=== PATIENT | female | born 2000 | race Two or more races ===

== ENCOUNTER → 2024-10-26 | Outpatient (CLI) | payer BC, SELFPAY ==
--- NOTE | 2024-10-26 14:30 | XR_ITS ---
Examination: Abdomen sonogram, complete Date and time of exam: October 26, 2024 1501 hours INDICATIONS: Upper abdominal pain beginning 2 years ago. Technique: Multiple real-time grayscale transabdominal sonographic images of the abdomen have been obtained. Findings: Multiple gallstones Normal gallbladder wall Normal common bile duct 0.3 cm Pancreatic head 2.5 cm Aorta not enlarged Liver 14.4 cm fatty infiltration no focal liver lesions Normal hepatopedal portal venous flow Patent IVC Right kidney 10.5 cm cortex 2.6 cm Left kidney 11.2 cm cortex 2.5 cm Spleen 10.3 cm IMPRESSION: Cholelithiasis, negative for cholecystitis Fatty liver
== END | disposition home or self-care (01) ==
PROVIDERS: PCP Physician Assistant; Referring Provider Physician Assistant; Visit Provider Physician Assistant
DX: K80.20 Calculus of gallbladder without cholecystitis without obstruction (principal); K76.0 Fatty (change of) liver, not elsewhere classified
CPT/HCPCS: 76700

== ENCOUNTER 2024-11-23 20:48 | Emergency (ER) | payer BC, SELFPAY ==
[2024-11-23 20:50] VITALS: BMI 31.8
--- NOTE | 2024-11-23 22:06 | PC.NURSE ---
PT DID NOT ANSWER WHEN NAME WAS CALLED IN THE LOBBY AND WAS NOT FOUND OUTSIDE
--- NOTE | 2024-11-23 22:20 | PC.NURSE ---
PATIENT STATED THAT HER PAIN HAD IMPROVED AND WAS GOING TO LEAVE. PATIENT STATED SHE WILL RETURN IN THE MORNING FOR HER SCHEDULED SURGERY. PATIENT ALSO STATED SHE DID NOT WANT TO BE SEEN OR STAY BECAUSE SHE DID NOT WANT TO RECEIVE AN ADDITIONAL BILL WHEN SHE ALREADY HAS SURGERY SCHEDULED FOR TOMORROW HERE. PATIENT ENCOURAGED TO STAY. PATIENT ALSO ENCOURAGED TO RETURN.
== END 2024-11-23 22:20 | disposition left against medical advice (07) ==
LOC: SERX 22:45
PROVIDERS: Emergency Provider Emergency Medicine
DX: Z53.21 Procedure and treatment not carried out due to patient leaving prior to being seen by health care provider (principal)

== ENCOUNTER 2024-11-24 05:40 | Day surgery (SDC) | payer BC, SELFPAY ==
[2024-11-23 10:20] VITALS: BMI 31.0
[2024-11-23 12:27] LABS: Basophils % (Auto) 0 % (0-2.5); Eosinophils # (Auto) 0.1 Thou/mm3 (0.0-0.5); Eosinophils % (Auto) 1 % (0-10); Hematocrit 37.8 % (36.0-46.0); Hemoglobin 12.9 g/dL (12.0-16.0); Immature Granulocytes % (Auto) 0 % (0-0); Immature Granulocytes Auto 0.02 Thou/mm3 (0.00-0.00); Lymphocytes # (Auto) 2.3 Thou/mm3 (1.0-4.8); Lymphocytes % (Auto) 30 % (10-50); Mean Corpuscular HGB Conc 34.1 g/dl (31.0-37.0); Mean Corpuscular Hemoglobin 29.5 pg (25.0-35.0); Mean Corpuscular Volume 87 fL (80-100); Monocytes # (Auto) 0.7 Thou/mm3 (0.0-0.8); Monocytes % (Auto) 9 % (0-12); Neutrophils # (Auto) 4.6 Thou/mm3 (1.8-7.7); Neutrophils % (Auto) 60 % (37-80); Nucleated Red Blood Cell % 0 /100 WBC (0); Platelet Count 250 Thou/mm3 (140-440); Red Blood Count 4.37 Miln/mm3 (4.00-5.20); White Blood Count 7.8 Thou/mm3 (3.6-11.0)
[2024-11-23 12:39] LABS: Alanine Aminotransferase 25 U/L (10-49); Albumin, Serum 4.4 gm/dL (3.5-5.0); Albumin/Globulin Ratio 1.5 (1.2-2.2); Alkaline Phosphatase 66 U/L (46-116); Anion Gap 7 (7-16); Aspartate Amino Transferase 20 U/L (0-34); BUN/Creatinine Ratio 10 Ratio (12-20); Beta HCG,Quantitative 2 mIU/mL (<5.0); Bilirubin,Total 0.3 mg/dL (0.3-1.2); Blood Urea Nitrogen 7 mg/dL (9-23); Calcium 9.2 mg/dL (8.3-10.6); Calcium (Corrected) 9.2 mg/dL (8.5-10.1); Carbon Dioxide 26.4 mMol/L (20.0-31.0); Chloride 108 mMol/L (98-107); Creatinine (Component) 0.7 mg/dL (0.6-1.3); Estimated Creatinine Clearance 127.3 mL/min (>60); Glucose 81 mg/dL (74-106); Osmolality,Calculated 278 (275-295); Potassium 4.2 mMol/L (3.4-5.1); Sodium 141 mMol/L (136-145); Total Protein 7.4 gm/dL (5.7-8.2); eGFR > 60 See Note
[2024-11-24] VITALS (10 sets, daily range): BP systolic 110–134; BP diastolic 75–90; PULSE 68–95; RESP 12–20; TEMP 36.2–36.6; O2SAT 98–100; BMI 32.2
[2024-11-24] MEDS: RINGERS LACTATED 1000 ML 1,000 ML 20 ML IV (06:42)
--- NOTE | 2024-11-24 08:31 | ESOP_ITS ---
Date of Procedure 11/24/24 Pre Op Diagnosis Symptomatic cholelithiasis Post Op Diagnosis Cholelithiasis with cholecystitis Procedure Laparoscopic cholecystectomy Findings Moderately distended gallbladder with multiple gallstones and chronic cholecystitis Procedure Description Patient was brought into the operating room in supine position. After administration of general endotracheal anesthesia abdomen was prepped and draped in standard surgical manner. A Veress needle was inserted through the umbilicus and pneumoperitoneum was obtained up to 15 mmHg. The Veress needle was then removed, a 5 mm infraumbilical incision was made and the 5mm trocar was inserted. Laparoscopic camera was placed. Under direct visualization a laparoscopic camera a 10 mm trocar was placed in subxiphoid and two 5 mm trocars placed in right upper quadrant. The gallbladder was identified and was noted to be moderately distended with multiple gallstones and chronic cholecystitis. It was retracted cephalad and laterally. Dissection started near the infundibulum of gallbladder where cystic duct and gallbladder junction clearly identified. The cystic duct was circumferentially dissected off the peritoneum and surrounding inflammatory tissue. The critical view of safety was clearly demonstrated. Cystic duct was then divided between 2 endoclips proximally and one distally. The cystic artery was similarly dissected and divided. The gallbladder was then from the liver bed using electrocautery. The gallbladder was then placed inside an Endo Catch and removed from the abdomen utilizing subxiphoid trocar site. The area was copiously and thoroughly washed and irrigated, all the fluid was suctioned and the suction fluid returned clear. Hemostasis achieved using electrocautery, also topical hemostatic agent using snow Surgicel placed at the gallbladder fossa to further assure hemostasis. Endoclips noted be in place and intact without any bleeding or any leakage. Hemostasis was adequate and satisfactory. The subxiphoid trocar sites fascial defect was closed with 0 Vicryl using Endo Closure device. Instruments and trocars removed, pneumoperitoneum was evacuated and the incisions closed with 4- 0 Monocryl in subcuticular fashion. Instrument needle and sponge counts were all reported to be correct X2. Patient tolerated the procedure well, was extubated, breathing spontaneously and without difficulty and was transferred to postanesthesia care in stable condition. Anesthesia GETA and local Pathology / specimen Other (Gallbladder and contents) Estimated Blood Loss 25 Condition Stable Disposition PACU Surgeon Marino Miguel MD Surgical Staff Operation Date: 11/24/24 07:30 Case Staff TRANSMISSION SYSTEM OPERATOR: Darron Canales education faculty member: Lizbet Askew
--- NOTE | 2024-11-24 08:40 | SUR.PHASEI ---
0840: Pt. wakes to name then drifts back to sleep, vitals stable, breathing unlabored, no complaint of pain or nausea, x4 dermabond sites to ABD CDI, no active bleed noted, report received from Hira REYES and Darron BATES.
[2024-11-24] MEDS: fentaNYL CIT INJ 50 mCg/ML AMP 2ML IV ×2 (08:51→09:02)
[2024-11-24] MEDS: ACETAMINOPHEN IVPB 1,000 MG/100 ML VIAL 250 MG IV (08:52)
[2024-11-24] MEDS: ONDANSETRON INJ 2 MG/ML INJ 2 ML 4 MG IV (09:36)
[2024-11-24] MEDS: SCOPOLAMINE 1 MG TDSY TOP (09:51)
[2024-11-24] MEDS: METOCLOPRAMIDE INJ 5 MG/ML VIAL 2 ML 10 MG IVP (09:51)
--- NOTE | 2024-11-24 10:07 | SUR.PHASEII ---
1007: Pt. AAOx4, vitals stable, breathing unlabored, no complaint of pain or nausea, pt. had nausea prior DC which is why she was monitored slightly longer, x4 dermabond sites to ABD CDI, no active bleed noted, pt. tolerated sips of soda well, pt. ambulated to wheelchair with steady gait and no assist, no complications. Gave discharge instructions to the pt. and her ride, both verbalized understanding and had no further questions. Pt. left with all personal belongings.
== END 2024-11-24 10:07 | disposition home or self-care (01) ==
PROVIDERS: PCP Physician Assistant; Referring Provider Surgery; Visit Provider Surgery
PROC: 0FT44ZZ Resection of Gallbladder, Percutaneous Endoscopic Approach (ICD-10-PCS; CPT 47562; principal; 2024-11-24 07:30)
DX: K80.10 Calculus of gallbladder with chronic cholecystitis without obstruction (principal)
CPT/HCPCS: 47562; 36415; 80053; 84702; 85025; A4217; A4649; J0131; J0694; J1100; J1885; J2250; J2405; J2704; J2765; J3010; J3490; J7120; A9270

== ENCOUNTER → 2024-12-12 | Outpatient (CLI) | payer BC, SELFPAY ==
--- NOTE | 2024-12-12 | XR_ITS ---
Examination: Knee, left , 3 views Technique: Knee AP, lateral, oblique 3 views Date and time of exam: December 12, 2024 1117 hours INDICATIONS: Knee pain months. FINDINGS: Mild narrowing medial joint space No fracture or dislocation No foreign body IMPRESSION: Mild narrowing medial joint space
== END | disposition home or self-care (01) ==
LOC: CDIM 10:50
PROVIDERS: PCP Physician Assistant; Referring Provider Physician Assistant; Visit Provider Physician Assistant
DX: M25.862 Other specified joint disorders, left knee (principal)
CPT/HCPCS: 73562